=== PATIENT | male | born 1990 | race Caucasian/White ===

== ENCOUNTER 2016-12-03 05:14 | Emergency (ER) | payer OTHER, MEDICAID ==
[~2016-12-03] VITALS: Ht 180.3 cm; Wt 89.0 kg
[2016-12-03 06:09] VITALS: BP 128/79
== END 2016-12-03 07:05 | disposition home or self-care (01) ==
LOC: ER 06:01
DX: Z04.1 Encounter for examination and observation following transport accident (principal)
CPT/HCPCS: 99281